=== PATIENT | male | born 1985 | race Two or more races ===

== ENCOUNTER 2023-10-05 12:39 | Emergency (ER) | payer SELFPAY ==
[~2023-10-05] VITALS: Ht 170.2 cm; Wt 72.3 kg
[2023-10-05] MEDS ORDERED: PRED20TA2 PO (14:35)
[2023-10-05 14:38] VITALS: BP 157/96; PULSE 99; RESP 18; TEMP 98.9; O2SAT 97
== END 2023-10-05 14:49 | disposition home or self-care (01) ==
LOC: ER 12:39
DX: S43.402A Unspecified sprain of left shoulder joint, initial encounter (principal); X58.XXXA Exposure to other specified factors, initial encounter; Y93.89 Activity, other specified; Y92.89 Other specified places as the place of occurrence of the external cause; Y99.8 Other external cause status
CPT/HCPCS: 73030

== ENCOUNTER 2024-10-07 12:47 | Emergency (ER) | payer OTHER ==
[~2024-10-07] VITALS: Ht 185.4 cm; Wt 70.2 kg
[~2024-10-07 12:47] MED LIST: PRED20TA2 PO
--- NOTE | 2024-10-07 14:05 | ED.PDOC ---
Musculoskeletal HPI Comments 39 y/o M, presents to the ED for CC of a possible L shoulder dislocation. Patient states, he has been experiencing mild left shoulder dislocations and patient has been able to reduce them independently at home. Patient requesting a ortho referral. 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 Patient denies trauma, injury, or fall. No other symptoms or modifiers present at this time. Denies fevers chills night sweats nausea vomiting redness around the shoulder Denies previous surgeries to the shoulder or significant injury Numbness/tingling down the arm Denies changes, shortness of breath Chief Complaint: Upper Extremity Time Seen by MD: 14:00 Primary Care Provider: UNKNOWN Reviewed Notes: Nurses Notes, Medications, Allergies Allergies: Coded Allergies: NO KNOWN ALLERGIES (Unverified , 10/07/24) Home Meds Active Scripts Prednisone (Prednisone) 20 Mg Tab, 40 MG PO DAILY, #20 TAB Prov:ARACELIS MERCHANT 10/05/23 Information Source: Patient Mode of Arrival: Ambulatory Location: Left Extremity Location: Shoulder Timing: Days Prehospital treatment: None Severity: Moderate Able to Move Extremity: Yes Pain: Moderate Hand Dominance: Right Mechanism: Spontaneous Circumstances: Spontaneous Onset of Symptoms: Spontaneous Symptoms: Pain DVT Risk Factors: NONE Associated signs and symptoms: Shoulder pain Past Medical History PAST MEDICAL HISTORY: Denies Surgical History: Denies all surgeries Family History Family History: Reviewed,noncontributory to illness Social History Smoker: Non-Smoker Alcohol: Denies ETOH Use Drugs: Denies Drug Use Lives In: Home Constitutional: denies: chills, diaphoresis, fatigue, fever, malaise, sweats, weakness, others EENTM: denies: blurred vision, double vision, ear bleeding, ear discharge, ear drainage, ear pain, ear ringing, eye pain, eye redness, hearing loss, mouth pain, mouth swelling, nasal discharge, nose bleeding, nose congestion, nose pain, photophobia, tearing, throat pain, throat swelling, voice changes, others Respiratory: denies: cough, hemoptysis, orthopnea, SOB at rest, shortness of breath, SOB with excertion, stridor, wheezing, others Cardiovascular: denies: chest pain, dizzy spells, diaphoresis, Dyspnea on exertion, edema, irregular heart beat, left arm pain, lightheadedness, palpitations, PND, syncope, others Gastrointestinal: denies: abdomen distended, abdominal pain, blood streaked bowels, constipated, diarrhea, dysphagia, difficulty swallowing, hematemesis, melena, nausea, poor appetite, poor fluid intake, rectal bleeding, rectal pain, vomiting, others Genitourinary: denies: burning, dysuria, flank pain, frequency, hematuria, incontinence, penile discharge, penile sore, pain, testicle pain, testicle swelling, urgency, others Neurological: denies: dizziness, fainting, headache, left sided numbness, left sided weakness, numbness, paresthesia, pre-existing deficit, right sided numbness, right sided weakness, seizure, speech problems, tingling, tremors, weakness, others Musculoskeletal: reports: others (left shoulder pain); denies: back pain, gout, joint pain, joint swelling, muscle pain, muscle stiffness, neck pain Integumetry: denies: bruises, change in color, change in hair/nails, dryness, laceration, lesions, lumps, rash, wounds, others Allergic/Immunocompromised: denies: Difficulty Healing, Frequent Infections, Hives, Itching, others Hematologic/Lymphatic: denies: anemia, blood clots, easy bleeding, easy bru ising, swollen glands, others Endocrine: denies: excessive hunger, excessive sweating, excessive thirst, e xcessive urination, flushing, intolerance to cold, intolerance to heat, unexplained weight gain, unexplained weight loss, others Psychiatric: denies: anxiety, bipolar disorder, depression, hopeless, panic disorder, schizophrenia, sleepless, suicidal, others All Other Systems: Reviewed and Negative Physical Exam General Appearance: No Apparent Distress, Normal HEENT: Normal ENT Inspection, Pharynx Normal Neck: Full Range of Motion, Non-Tender, Normal, Normal Inspection Respiratory: Chest Non-Tender, Lungs Clear, No Accessory Muscle Use, No Respiratory Distress, Normal Breath Sounds Cardiovascular: No Murmur, No Gallop, Regular Rate/Rhythm Breast Exam: Deferred Gastrointestinal: No Organomegaly, Non Tender, No Pulsatile Mass, Normal Bowel Sounds, Soft Genitalia: Deferred Pelvic: Deferred Rectal: Deferred Extremities: No calf tenderness, Normal capillary refill, Normal inspection, Normal range of motion, Non-tender, No pedal edema Musculoskeletal : Location: Left Extremity Location: Shoulder (Full range of motion.) Apperance: Tenderness Neurologic: Alert, large animal husbandry technician II-XII nml as Tested, No Motor Deficits, Normal Affect, Normal Mood, No Sensory Deficits Cerebellar Function: Normal Reflexes: Normal Skin: Dry, Normal Color, Warm Lymphatic: No Adenopathy Was a procedure done? Was a procedure done?: No Differential Diagnosis EXT Differential Diagnosis: Strain, Arthritis, Bursitis X-Ray, Labs, Meds, VS Vital Signs Date Time Temp Pulse Resp B/P (MAP) Pulse Ox O2 Delivery O2 Flow Rate FiO2 10/07/24 15:21 98.5 92 16 135/87 (103) 100 98.5 10/07/24 13:04 99.4 108 16 140/85 (103) 94 99.4 [place] [address] Ph: [phone] DIAGNOSTIC IMAGING Diagnostic Imaging Report : [id number] Signed PATIENT: TRES CAIN ACCT: [id number] UNIT: [id number] : 1985 LOC: ER ROOM / BED: / AGE / SEX: 39 / M ADM STATUS: REG ER SERVICE 1415 ORDERING PHYSICIAN: YUSEF SHEPHERD NP PROCEDURE(s): LSHD2 - L SHOULDER 2+ VIEW XRAY REASON: r/o dislocation ORDER NUMBER(s): [id number], ACCESSION NUMBER(s): [id number] CLINICAL INDICATION: r/o dislocation TECHNIQUE: 3 radiographic views of the left shoulder were obtained. Comparison: XY L SHOULDER 2+ VIEW XRAY on DOS: 10/05/23 FINDINGS/IMPRESSION: Shrapnel noted over the left 1st and 2nd rib and upper mediastinum. Acromioclavicular joint is in normal bony alignment there are no fractures or dislocations. Left shoulder shows no fracture dislocation. ATED BY: ARA DAVIS Jr., DO DICTATED DATE/TIME: 10/07/241445 SIGNED BY: ARA DAVIS Jr., SIGNED DATE/TIME: 10/07/241445 CC: X-Ray, Labs, Meds, VS Comment 39 y/o M, presents to the ED for CC of left shoulder pain. Patient arrives alert and oriented, ABC's intact, afebrile, vital signs stable, saturating well in room air Patient is stable for discharge at this time. External notes reviewed. Test results and diagnostic imaging interpreted. All diagnostic findings, discharge care, education and instructions provided Follow-up with PCP in 2 to 3 days Patient verbalized understanding and agreed to treatment plan Vital signs stable, afebrile, no acute distress noted Patient ambulatory with strong steady gait Advised to return precautions for any new or worsening symptoms, return to ER immediately for re-evaluation Patient is aware that the purpose of this visit was for an acute medical emergency requiring emergent stabilization. Chronic conditions, including malignancies have not been ruled out. Patient is instructed to follow up with PCP as directed and discharge instructions for continued care and workup. If unable to arrange follow-up, patient is to return to the emergency department for reassessment. Patient (parent or legal guardian if applicable) was given verbal and written discharge instructions and acknowledges understanding. Additional MDM Review of External, Non-ED records: External records reviewed. Discussion with independent historian (EMS, family) history obtained from the patient/parents (if applicable) at bedside Chronic conditions affecting care: None Social determinants of health affecting care: None Consideration of admission (observation or admission): I considered escalation of care to admission for this patient, however given the reassuring workup, the patient is safe for outpatient management. Discussion with the Radiology: No Tests considered but not performed: Prescription medication considered but not given: 12 lead EKG interpretation: Time of 1ST Reevaluation: 14:30 Reevaluation 1ST: Unchanged Patient Education/Counseling: Diagnosis, Treatment Family Education/Counseling: No Family Present Departure 1 Departure Time of Disposition: 15:05 Impression: Primary Impression: Left shoulder pain Qualified Codes: M25.512 - Pain in left shoulder; G89.29 - Other chronic pain Disposition: 01 HOME / SELF CARE / HOMELESS Condition: Stable Discharged With: Self Critical Care Note Critical Care Time?: No Stability Stability form required: No Heart Score Heart Score: Heart Score Response (Comments) Value History N/A 0 EKG N/A 0 Age N/A 0 Risk Factors N/A 0 Troponin N/A 0 Total 0 I personally scribed for YUSEF SHEPHERD NP (AdRoll) on 10/07/24 at 14:05. Electronically submitted by Alexandra Carson ([email or web address]). I personally scribed for YUSEF SHEPHERD COMPOSITION MIXER ([email or web address]) on 10/07/24 at 14:21. Electronically submitted by Alexandra Carson ([email or web address]). I personally scribed for YUSEF SHEPHERD COMPOSITION MIXER ([email or web address]) on 10/07/24 at 14:28. Electronically submitted by Alexandra Carson ([email or web address]). I personally scribed for YUSEF SHEPHERD F [employer]POSITION MIXER ([email or web address]) on 10/07/24 at 14:31. Electronically submitted by Alexandra Carson ([email or web address]). I personally scribed for YUSEF SHEPHERD F COMPOSITION MIXER ([email or web address]) on 10/07/24 at 14:55. Electronically submitted by Alexandra Carson ([email or web address]). YUSEF SHEPHERD COMPOSITION MIXER Oct 07, 2024 14:05
--- NOTE | 2024-10-07 14:49 | DVH ---
CLINICAL INDICATION: r/o dislocation TECHNIQUE: 3 radiographic views of the left shoulder were obtained. Comparison: XY L SHOULDER 2+ VIEW XRAY on DOS: 10/05/23 FINDINGS/IMPRESSION: Shrapnel noted over the left 1st and 2nd rib and upper mediastinum. Acromioclavicular joint is in normal bony alignment there are no fractures or dislocations. Left shoulder shows no fracture dislocation.
[2024-10-07 15:21] VITALS: BP 135/87; PULSE 92; RESP 16; TEMP 98.5; O2SAT 100
== END 2024-10-07 15:21 | disposition home or self-care (01) ==
LOC: ER 12:47
DX: M25.512 Pain in left shoulder (principal)
CPT/HCPCS: 73030

== ENCOUNTER 2024-11-24 07:54 | Emergency (ER) | payer OTHER ==
[~2024-11-24] VITALS: Ht 185.4 cm; Wt 72.6 kg
[2024-11-24 07:56] VITALS: TEMP 98.6
[2024-11-24 08:41] VITALS: BP 134/92; PULSE 89; RESP 16; O2SAT 98
[2024-11-24 09:51] LABS: Urine Protein, UAD TRACE (Negative)
--- NOTE | 2024-11-24 11:57 | DVH ---
INDICATION: Pain; r/o kidney stones TECHNIQUE: Multiple real-time sonographic images of the kidneys and bladder were obtained. COMPARISON: None FINDINGS: The right kidney measures 11 cm in length, which is normal in size. There is normal echogen icity of the right kidney. No hydronephrosis. There is a right renal cyst measuring 3 cm. The left kidney measures 10 cm in length, which is normal in size. There is normal echogenicity of th e left kidney. No hydronephrosis. No large intraluminal masses are seen in the bladder. Prior to voiding the bladder volume measures vo lume 187 cc. Patient is unable to void at this time. IMPRESSION: 1. Normal sonographic appearance of the kidneys. No hydronephrosis.
[2024-11-24] MEDS ORDERED: CIPR-173 PO (12:10)
--- NOTE | 2024-11-24 12:12 | ED.PDOC ---
General HPI Comments 39-year-old male with a MHx presents for a possible UTI x1 day Complains of dysuria and mild blood at the end of every void Associated symptoms. Denies fevers chills night sweats Denies pelvic pain Denies nausea vomiting diarrhea Denies dysuria urgency frequency Denies history of UTI Denies recent instruments/toys and urethra Denies current tobacco use Denies family history of prostate issues Chief Complaint: Penile Problem Time Seen by MD: 08:06 Primary Care Provider: UNKNOWN Reviewed notes: Nurses Notes, Medications, Allergies Allergies: Coded Allergies: NO KNOWN ALLERGIES (Unverified , 10/07/24) Home Meds Active Scripts Ciprofloxacin Hcl (Cipro) 500 Mg Tab, 1 TAB PO BID for 10 Days, #20 TAB 0 Refills Prov:YUSEF SHEPHERD NP 11/24/24 Prednisone (Prednisone) 20 Mg Tab, 40 MG PO DAILY, #20 TAB Prov:ARACELIS MERCHANT 10/05/23 Information Source: Patient Mode of Arrival: Ambulatory Past Medical History PAST MEDICAL HISTORY: Denies Surgical History: Denies all surgeries Family History Family History: Reviewed,noncontributory to illness Social History Smoker: Non-Smoker Alcohol: Denies ETOH Use Drugs: Denies Drug Use Lives In: Home All Other Systems: Reviewed and Negative (Per HPI) Physical Exam General Appearance: No Apparent Distress, Normal HEENT: Normal ENT Inspection, Pharynx Normal, TMs Normal Neck: Full Range of Motion, Non-Tender, Normal, Normal Inspection Respiratory: Chest Non-Tender, Lungs Clear, No Accessory Muscle Use, No Respiratory Distress, Normal Breath Sounds Cardiovascular: No Edema, No JVD, No Murmur, No Gallop, Normal Peripheral Pulses, Regular Rate/Rhythm Breast Exam: Deferred Gastrointestinal: No Organomegaly, Non Tender, No Pulsatile Mass, Normal Bowel Sounds, Soft Genitalia: Deferred Pelvic: Deferred Rectal: Deferred Extremities: No calf tenderness, Normal capillary refill, Normal inspection, Normal range of motion, Non-tender, No pedal edema Musculoskeletal : Apperance: Normal Neurologic: Alert, grant manager II-XII nml as Tested, No Motor Deficits, Normal Affect, Normal Mood, No Sensory Deficits Cerebellar Function: Normal Reflexes: Normal Skin: Dry, Normal Color, Warm Lymphatic: No Adenopathy Was a procedure done? Was a procedure done?: No Differential Diagnosis Kidney stone (Female): Other Urinary Problem (Male): Prostatitis, Plelonephritis, Urethritis, Urolithiasis, UTI X-Ray, Labs, Meds, VS Vital Signs Date Time Temp Pulse Resp B/P (MAP) Pulse Ox O2 Delivery O2 Flow Rate FiO2 11/24/24 08:41 89 16 134/92 (106) 98 11/24/24 08:41 89 16 98 Room Air 11/24/24 07:56 98.6 92 18 149/91 95 98.6 Lab Test 11/24/24 09:39 Range/Units Urine Color Colorless Yellow Urine Clarity Clear Clear Urine pH 5.5 5.0-9.0 Urine Specific [place] 1.016 1.001-1.035 Urine Protein Trace H Negative Urine Ketones 1+ H Negative Urine Blood 3+ H Negative /uL Urine Nitrite Negative Negative Urine Bilirubin Negative Negative Urine Urobilinogen Normal Negative mg/dL Urine Leukocyte Esterase Negative Negative /uL Urine RBC 604 0 - 3 /hpf Urine Microscopic WBC 33 H 0-3 /HPF Urine Squamous Epithelial Cells None seen <5 /hpf Urine Bacteria Few H None Seen /hpf Urine Glucose Normal Normal mg/dL X-Ray, Labs, Meds, VS Comment History and lab findings consistent with UTI Vital signs stable patient stable Patient tolerating p.o. fluids Encouraged parents to increase water intake Drink plenty of fluids to help flush bacteria out of the urinary tract Empty bladder completely as soon as you feel the urge Empty bladder after intercourse Prescribed p.o. antibiotics for presentation of symptoms Complete course of antibiotic therapy even if symptoms improve or resolve. There should be no leftover antibiotics as this can lead to antibiotic resistant bacteria and even worse infection. Parents verbalized understanding. Potential side effects discussed with patient including abdominal pain, nausea, diarrhea. Recommended probiotics and return precautions given Persistent diarrhea Dehydration Blood in stool Ill-appearing Time of 1ST Reevaluation: 12:06 Reevaluation 1ST: Improved Patient Education/Counseling: Diagnosis, Treatment Family Education/Counseling: Diagnosis, Treatment SEPSIS Sepsis Screen Date sepsis recognized/suspect: Nov 24, 2024 Time Sepsis recognized/suspect: 075 Recent Procedure: No On Antibiotic Therapy: No Respiratory Rate >20: No Heart Rate >90: Yes Temp<36 C (96.8 F) or >38.3 C: No SBP <90 or MAP <65 mmHG: No New Acute Mental Status Change: No Is the patient on CPAP, BIPAP,: No Physician Orders Chlamydia/Gc Amplification (11/24/24 09:24) Kidney (11/24/24 09:54) Vital Signs Date Time Temp Pulse Resp B/P (MAP) Pulse Ox O2 Delivery O2 Flow Rate FiO2 11/24/24 08:41 89 16 134/92 (106) 98 11/24/24 08:41 89 16 98 Room Air 11/24/24 07:56 98.6 92 18 149/91 95 98.6 Departure 1 Departure Time of Disposition: 12:11 Impression: Primary Impression: Cystitis Disposition: 01 HOME / SELF CARE / HOMELESS Condition: Fair e-Prescriptions Ciprofloxacin Hcl (Cipro) 500 Mg Tab 1 TAB PO BID for 10 Days, #20 TAB 0 Refills Prov: UYSEF SHEPHERD NP 11/24/24 Discharged With: Self Critical Care Note Critical Care Time?: No Stability Stability form required: No Heart Score Heart Score: Heart Score Response (Comments) Value History N/A 0 EKG N/A 0 Age N/A 0 Risk Factors N/A 0 Troponin N/A 0 Total 0 YUSEF SHEPHERD NP Nov 24, 2024 12:12
== END 2024-11-24 12:24 | disposition home or self-care (01) ==
LOC: ER 07:54
DX: N30.90 Cystitis, unspecified without hematuria (principal)
CPT/HCPCS: 76775; 81001